=== PATIENT | female | born 1965 | race Caucasian/White ===

== ENCOUNTER 2018-03-27 21:58 | Emergency (ER) | payer OTHER, SELFPAY ==
[2018-03-27 21:58] VITALS: BP 155/87; PULSE 85; RESP 16; TEMP 36.6; O2SAT 100; BMI 24.6
--- NOTE | 2018-03-27 22:37 | ED.VISSUMM ---
- ER Visit Summary Date of Service: 03/27/18 Chief Complaint: [] Suicide attempt with homicidal ideation History of Present Illness: The patient is a 52 F patient told her ene that she took Tylenol PM multiple tablets 36 hours ago and 6 extra strength Tylenol at that time as well. She was trying to kill herself. The patient will not offer much of a history but will nod and answer yes or no. He does not want to talk about it. The stated she is never done this before. He told us that she told him not to come home ene to bring her daughter's state and is telling her to kill them. She does not have no psychiatric history. She is not a drug or alcohol abuser. She restarted levothyroxine a week ago. Prior to that she was not taking them unable to do review of systems secondary to cooperation Physical Examination: [] Vital signs reviewed General: Well-nourished well-developed Head: Normocephalic atraumatic Eyes: Pupils equal round and reactive to light extraocular movements intact ENT: TMs clear no hemotympanum no trauma Neck: Nontender full range of motion Cardiovascular: Regular rate rhythm no murmurs normal S1-S2 Respiratory: No distress clear to auscultation bilaterally chest nontender Abdomen: Soft nontender nondistended normal bowel sounds no masses Back: Nontender no CVA tenderness Extremities: Nontender active range of motion ?4 extremities no trauma Skin: Normal color no trauma Neuro alert oriented cranial nerves II through XII intact normal strength sensation reflexes History: Patient does not want to talk and is withdrawn. Test Results: [] Emergency Department Course and Treatment: [] EKG shows sinus rhythm at a rate of 70 without ischemia. CBC is normal except hemoglobin 15.1. Chemistries normal except potassium 3.2. Creatinine 1.6. Liver function tests normal. Tylenol negative. Alcohol negative. Tox and alcohol negative. negative. TSH is elevated and free T4 is low consistent with her hypothyroidism and treatment. Patient evaluated by crisis and will be admitted Treatment Plan: [] Disposition: [] Impression: [] Suicide attempt Homicidal ideation Hypothyroidism and treatment This note was generated with [employer] software. It may contain incorrect words, spelling, and punctuation that were not noted in review of the chart prior to signing ED Disposition - Plan for ED Patient: Chief Complaint: Suicidal Referrals: Antonio Kennedy MD [Primary Care Provider] -
[2018-03-27 22:51] LABS: Absolute Lymphocyte Count 3.55 X10^3/ul (0.83-4.51); Absolute Neutrophil Count 4.9 X10^3/uL (2.0-7.7); Basophil# 0.07 X10^3/uL; Basophil% 0.8 % (0-1); Eosinophil# 0.07 X10^3/uL; Eosinophils% 0.8 % (0-5); Hematocrit 44.8 % (37-47); Hemoglobin 15.1 g/dl (12.0-15.0); Lymphocyte # 3.55 X10^3/ul (4.0); Lymphocyte % 38.8 % (19-41); Mean Corp Hgb Conc 33.7 g/gl (32-36); Mean Corpuscular Hgb 31.4 pg (27.0-32.0); Mean Corpuscular Volume 93.1 fL (81-99); Mean Platelet Vol. 11.4 fl (6.2-12.0); Monocyte# 0.58 X10^3/uL; Monocyte% 6.3 % (0-10); Neutrophil # 4.87 X10^3/uL (2.7-7.7); Neutrophil % 53.3 % (47-70); Platelet Count 204 K/mm3 (150-450); RBC Distribution Width CV 14.1 % (11.6-14.6); RBC Distribution Width SD 47.9 fl (35.1-43.9); Red Blood Count 4.81 M/mm3 (4.2-5.4); White Blood Count 9.1 K/mm3 (4.4-11.0)
[2018-03-27 22:56] LABS: POSITIVE COUNT NO; POSITIVE DIFFERENTIAL NO; POSITIVE MORPHOLOGY NO
[2018-03-27 22:57] LABS: Amphetamine Urine VISTA NEGATIVE (<1000 ng/mL); Barbiturate Urine VISTA NEGATIVE (< 200 ng/mL); Benzodiazepine Urine VISTA NEGATIVE (< 200 ng/mL); Cocaine Urine VISTA NEGATIVE (< 300 ng/mL); Ecstacy Urine VISTA NEGATIVE (< 500 ng/mL); Methadone Urine VISTA NEGATIVE (< 300 ng/mL); PCP Urine VISTA NEGATIVE (< 25 ng/mL); THC Urine VISTA NEGATIVE (< 50 ng/mL); Vista UDS pH Range 5
[2018-03-27 23:26] LABS: Pregnancy, Serum, hCG Quali. NEGATIVE Negative (0-9 Nonpreg)
[2018-03-27 23:30] LABS: Acetaminophen (Tylenol) Level < 2.0 ug/mL (10.0-30.0); Alcohol, Blood (Medical)-Serum < 3.0 mg/dL; Salicylate < 1.7 mg/dL (2.8-20.0)
[2018-03-27 23:45] LABS: AST(SGOT) 35 U/L (15-37); Alanine Aminotransfer ALT/SGPT 35 U/L (13-56); Albumin, Serum 4.6 g/dL (3.2-5.0); Alkaline Phosphatase 59 U/L (45-117); Anion Gap 9 (5-15); BUN 16 mg/dL (7-18); BUN/Creat Ratio 9.7 RATIO (10-20); Bilirubin, Direct 0.23 mg/dL (0.00-0.30); Calcium,Total 9.9 mg/dL (8.5-10.1); Chloride 102 mmol/L (98-107); Creatinine, Serum 1.65 mg/dL (0.55-1.02); EST Glomerular Filtration Rate 35 mL/min (>60); Est Glom Filt Rate - Afr Amer 42 mL/min (>60); Estimated Creatinine Clearance 35.48 ml/min; Globulin 4.2 g/dL (2.2-4.2); Glucose 80 mg/dL (74-106); Potassium 3.2 mmol/L (3.5-5.1); Protein, Total 8.8 g/dL (6.4-8.2); Sodium Level 137 mmol/L (136-145)
[2018-03-28 00:30] VITALS: RESP 16
[2018-03-28 02:17] VITALS: BP 139/83; PULSE 75; RESP 16
[2018-03-28 03:11] VITALS: RESP 18
[2018-03-28 04:17] VITALS: RESP 18
[2018-03-28 05:16] VITALS: BP 134/89; PULSE 76; RESP 18
[2018-03-28 05:36] VITALS: BP 134/89; PULSE 76; RESP 18; TEMP 36.4; O2SAT 98
--- NOTE | 2018-03-28 07:39 | ED.RN ---
SEE DOWNTOWN CHARTING FOR CHARTING LAPSE. PT COOPERATIVE. TRANSFER TO [facility]
== END 2018-03-28 07:40 ==
PROVIDERS: Emergency Provider Emergency Medicine; Family Provider Family Medicine; PCP Family Medicine
DX: T14.91XA Suicide attempt, initial encounter (principal); X83.8XXA Intentional self-harm by other specified means, initial encounter; Y93.9 Activity, unspecified; Y92.9 Unspecified place or not applicable; R45.850 Homicidal ideations; E03.9 Hypothyroidism, unspecified; Z90.49 Acquired absence of other specified parts of digestive tract; Z79.899 Other long term (current) drug therapy
CPT/HCPCS: 80048; 80076; 80307; 80320; 80329; 84439; 84443; 84703; 85025; 93005; 99284; G0480

== ENCOUNTER 2021-07-13 16:09 | Emergency (ER) | payer OTHER, SELFPAY ==
[2021-07-13 16:10] VITALS: BP 146/100; PULSE 96; RESP 15; TEMP 36.1; O2SAT 100; BMI 29.7
--- NOTE | 2021-07-13 16:37 | EKG12_ITS ---
Test Reason : CP Blood Pressure : / mmHG Vent. Rate : 104 BPM Atrial Rate : 104 BPM P-R Int : 144 ms QRS Dur : 080 ms QT Int : 338 ms P-R-T Axes : 087 077 010 degrees QTc Int : [address] & T wave abnormality, consider inferior ischemia Abnormal ECG Confirmed by BRENDA RODRIGUEZ, TAMIKA ([id number]), state editor ARIES SALMERON ([id number]) on 07/18/2021 9:37:04 AM Referred By: SOFY/YURIDIA Confirmed By:KT GUTIERREZ MD
--- NOTE | 2021-07-13 16:40 | ED.VIS.CHEST ---
HPI History of Present Illness Chief Complaint: Chest Pain Narrative Narrative: Patient presenting with chest pain and some shortness of breath on exertion. Patient denies fever, chills, cough. Patient describes the pain as radiating up into her neck prior to arrival. She does not have any cardiac history. She does have a history of hypothyroidism. She states that she has been fatigued recently which is unlike her. She states she went out of town to visit family and did not want to hike because she is more tired than usual which is atypical for her. Per states she walks less than a mile and felt so tired she did not want to do it again the next day. No history of DVT/PE and no risk factors. [facility] Medical History Hypothyroidism Home Medications levothyroxine 100 mcg PO DAILY 09/17/14 [History Last Taken Unknown] Allergy/AdvReac Type Severity Reaction Status Date / Time FLAX SEED Allergy Hives Uncoded 07/13/21 16:10 Social History Smoking Status: Never smoker ROS ROS ED Constitutional Constitutional ED: Denies fever(s), subjective or sweats Eyes Eyes: Denies blurry vision or change in vision ENT ENT ED: Denies rhinorrhea or sore throat Cardiovascular Cardiovascular: Reports chest pain; Denies palpitations Respiratory/Chest Respiratory/Chest: Reports dyspnea on exertion; Denies cough or sputum Gastrointestinal Gastrointestinal: Denies abdominal pain, nausea or vomiting Genitourinary Genitourinary ED: Denies dysuria or hematuria Musculoskeletal Musculoskeletal: Denies arthralgias or myalgias Integumentary Denies abscess or rash Neurologic Neurologic: Denies headache(s) or paresthesias EXAM Physical Exam Const Vital Signs: 07/13/21 16:10 07/13/21 16:41 07/13/21 16:42 Temperature 97.0 F L Temperature Source Temporal Pulse Rate 96 Respiratory Rate 15 Respiratory Effort Normal Non-Labored Blood Pressure 146/100 H Blood Pressure Mean 115 Pulse Ox 100 99 Oxygen Delivery Method Room Air Room Air 07/13/21 17:16 07/13/21 18:00 07/13/21 19:27 Temperature Temperature Source Pulse Rate 88 92 95 Respiratory Rate 28 H 18 23 H Respiratory Effort Blood Pressure 136/78 H 126/77 H 122/72 H Blood Pressure Mean 97 93 88 Pulse Ox 98 97 95 Oxygen Delivery Method Room Air Room Air Room Air 07/13/21 20:16 Temperature Temperature Source Pulse Rate 90 Respiratory Rate 25 H Respiratory Effort Blood Pressure 125/84 H Blood Pressure Mean 97 Pulse Ox 96 Oxygen Delivery Method Room Air Positive well developed General Appearance ED: well developed and NAD; Negative for pallor HEENT Reports moist mucous membranes normocephalic and atraumatic Eyes PERRL and EOMs intact bilaterally Chest Wall inspection of chest normal and palpation of chest normal Resp normal respiratory effort Effort and Inspection: respiratory distress Cardio regular rate and regular rhythm Extremity normal to inspection General Extremety ED: Negative for edema or tenderness General Extremity: Negative for edema Neuro oriented x3 Sensorium / Orientation: awake and alert Psych mental status grossly normal Skin General Skin Exam: Negative for jaundice or pallor Heart Score History: Slightly/Non-Suspicious ECG: Normal Age: >45 - <65 years Risk Factors: No Risk Factors Troponin: </= Normal Limit Score: 1 MDM MDM MDM Narrative Medical decision making narrative: Patient presenting with chest pain and generalized fatigue as well as shortness of breath sometimes with exertion. Her EKG on my interpretation shows a normal sinus rhythm ventricular rate of 104 bpm without sign of ischemic change. Chest x-ray on my interpretation shows no acute cardiopulmonary process. The radiologist does agree. CBC and BMP are unremarkable. High-sensitivity troponin is 3x2. Her vital signs are stable she is afebrile. I did check her TSH and T4 because she is on levothyroxine and these are both within normal limits. D-dimer was negative. Patient counseled on all findings. She is safe to be discharged home at this time. She will follow up with her PCP on outpatient basis. She can return precautions. Impression: 1. Chest pain 2. Fatigue Lab Data Labs: Laboratory Results - last 24 hr 07/13/21 07/13/21 07/13/21 17:13 17:13 17:25 WBC 10.3 RBC 5.03 Hgb 14.6 Hct 43.9 MCV 87.3 MCH 29.0 MCHC 33.3 RDW Std Deviation 41.4 RDW Coeff of Sarita 13.0 Plt Count 230 MPV 11.6 Immature Gran % (Auto) 0.200 Neut % (Auto) 60.9 Lymph % (Auto) 28.7 [place] % (Auto) 8.5 Eos % (Auto) 1.2 Baso % (Auto) 0.5 Absolute Neuts (auto) 6.3 Absolute Lymphs (auto) 2.96 Nucleated RBC % 0 D-Dimer Quant (PE/DVT) 0.29 Sodium 141 Potassium 3.7 Chloride 109 H Carbon Dioxide 24.0 Anion Gap 8 BUN 13 Creatinine 1.02 Estim Creat Clear Calc 54.76 Est GFR (MDRD) Af Amer 72 Est GFR (MDRD) Non-Af 59 L BUN/Creatinine Ratio 12.7 Glucose 95 Calcium 9.8 Troponin I High Sens 3 TSH 1.70 Free T4 0.96 07/13/21 19:11 WBC RBC Hgb Hct MCV MCH MCHC RDW Std Deviation RDW Coeff of Sarita Plt Count MPV Immature Gran % (Auto) Neut % (Auto) Lymph % (Auto) [place] % (Auto) Eos % (Auto) Baso % (Auto) Absolute Neuts (auto) Absolute Lymphs (auto) Nucleated RBC % D-Dimer Quant (PE/DVT) Sodium Potassium Chloride Carbon Dioxide Anion Gap BUN Creatinine Estim Creat Clear Calc Est GFR (MDRD) Af Amer Est GFR (MDRD) Non-Af BUN/Creatinine Ratio Glucose Calcium Troponin I High Sens 3 TSH Free T4 Radiography Diagnostic Testing: Clinical Impression(s) from Imaging Studies Chest X-Ray 07/13/21 17:25 IMPRESSION: Normal x-ray examination of the chest. Electronically Signed: Tyler Tate MD at 18:30 EST Tel , Service support , Discharge Plan Triage Chief Complaint: Chest Pain ED Provider: Michael Huber Dx/Rx/DC Orders Instructions: ED Chest Pain, Noncardiac Prescriptions: No Action levothyroxine 100 MCG tablet 100 mcg PO DAILY RF: 0 Primary Care Provider: Shellie Aguirre Referrals: Shellie Aguirre PA [Primary Care Provider] - Disposition Disposition: Home, Self Care
[2021-07-13 16:42] VITALS: O2SAT 99
[2021-07-13 17:16] VITALS: BP 136/78; PULSE 88; RESP 28; O2SAT 98
[2021-07-13 17:21] LABS: Absolute Lymphocyte Count 2.96 X10^3/uL (0.83-4.51); Absolute Neutrophil Count 6.3 X10^3/uL (2.0-7.7); Basophil# 0.05 X10^3/uL; Basophil% 0.5 % (0-1); Eosinophil# 0.12 X10^3/uL; Eosinophils% 1.2 % (0-5); Hematocrit 43.9 % (37-47); Hemoglobin 14.6 g/dL (12.0-15.0); Lymphocyte # 2.96 X10^3/ul (0.83-4.51); Lymphocyte % 28.7 % (19-41); Mean Corp Hgb Conc 33.3 g/dL (32-36); Mean Corpuscular Volume 87.3 fL (81-99); Mean Platelet Vol. 11.6 fl (6.2-12.0); Monocyte# 0.88 X10^3/uL; Monocyte% 8.5 % (0-10); NRBC Flagged by Analyzer 0 % (0-5); Neutrophil # 6.27 X10^3/uL (2.7-7.7); Neutrophil % 60.9 % (47-70); Platelet Count 230 K/mm3 (150-450); RBC Distribution Width SD 41.4 fl (35.1-43.9); Red Blood Count 5.03 M/mm3 (4.2-5.4); White Blood Count 10.3 K/mm3 (4.4-11.0)
--- NOTE | 2021-07-13 17:25 | RAD_ITS ---
STUDY: X-RAY CHEST REASON FOR EXAM: Female, 56 years old. Chest pain TECHNIQUE: Single frontal view of the chest. COMPARISON: 09/29/2011. FINDINGS: The lungs are clear and expanded. There is no demonstrated pleural abnormality. Normal size heart. Normal mediastinum and ariana. Normal visualized pulmonary arteries. Normal visualized aortic arch and descending thoracic aorta. Normal visualized thoracic spine. Normal visualized ribs, clavicles, and shoulders. There is no demonstrated abnormality of the visualized soft tissue structures of the upper abdomen. RAD/Chest 1 View (Portable) IMPRESSION: Normal x-ray examination of the chest. Electronically Signed: Tyler Tate MD at 18:30 EST Tel , Service support ,
[2021-07-13 17:42] LABS: D-Dimer Quantitative (DVT/PE) 0.29 FEU/ug/m (0.27-0.49)
[2021-07-13 17:48] LABS: Anion Gap 8 (5-15); BUN 13 mg/dL (7-18); BUN/Creat Ratio 12.7 RATIO (10-20); Calcium,Total 9.8 mg/dL (8.5-10.1); Chloride 109 mmol/L (98-107); Creatinine, Serum 1.02 mg/dL (0.55-1.02); EST Glomerular Filtration Rate 59 mL/min (>60); Est Glom Filt Rate - Afr Amer 72 mL/min (>60); Estimated Creatinine Clearance 54.76 ml/min; Glucose 95 mg/dL (74-106); Potassium 3.7 mmol/L (3.5-5.1); Sodium Level 141 mmol/L (136-145); T4 Free Direct 0.96 ng/dL (0.76-1.46); Troponin-I HS 3 pg/mL (3.0-54.0)
[2021-07-13 18:00] VITALS: BP 126/77; PULSE 92; RESP 18; O2SAT 97
[2021-07-13 19:27] VITALS: BP 122/72; PULSE 95; RESP 23; O2SAT 95
[2021-07-13 19:33] LABS: Troponin-I HS 3 pg/mL (3.0-54.0)
[2021-07-13 20:16] VITALS: BP 125/84; PULSE 90; RESP 25; O2SAT 96
== END 2021-07-13 20:50 | disposition home or self-care (01) ==
PROVIDERS: Emergency Provider Student in an Organized Health Care Education/Training Program
DX: R07.9 Chest pain, unspecified (principal); R53.83 Other fatigue; E03.9 Hypothyroidism, unspecified; Z79.899 Other long term (current) drug therapy
CPT/HCPCS: 36415; 71045; 80048; 84439; 84443; 84484; 85025; 85379; 93005; 99283; A4216